=== PATIENT | male | born 1965 | race Caucasian/White ===

== ENCOUNTER → 2017-02-24 | Day surgery (SDC) | payer OTHER ==
[~2017-02-24] VITALS: Ht 190.5 cm; Wt 102.2 kg
[~2017-02-24] MED LIST: AMPICILLIN-SULBACTAM INJ 3 GM VIAL ONE; DEXAMETHASONE SOD PHOS 4 MG/ML VIAL ONE; FAMOTIDINE 20 MG/2 ML VIAL ONE; GLIM2TAB PO; HYDR1ELX PO; LACTATED RINGER'S 1000 ML INJ 1,000 ML ONE; MIDAZOLAM HCL 2 MG/2 ML VIAL ONE; ONDANSETRON HCL 4 MG/2 ML VIAL IV PUSH ONE; ONDANSETRON HCL 4 MG/2 ML VIAL ONE; OXYMETAZOLINE HCL 0.05% 15 ML NASAL SPRAY ONE; PROPOFOL 200 MG/20 ML AMP IV ONE; SODIUM CHLORIDE 0.9% INJ 100 ML ONE; SUGAMMADEX SODIUM 200 MG/2 ML VIAL IV PUSH ONE
[2017-02-24 07:28] VITALS: BP 125/91; PULSE 63; RESP 16; TEMP 97.8; O2SAT 98
[2017-02-24 07:49] LABS: HEMATOCRIT 49.5 % (39.0-51.0); MEAN CELL VOLUME 90.4 FL (80.0-100.0); MEAN CORPUSCULAR HEMOGLOBIN 29.8 PG (27.0-34.0); MEAN CORPUSCULAR HGB CONC 32.9 % (32.0-36.0); PLATELET COUNT 180 TH/MM3 (150-450); RED BLOOD COUNT 5.48 MIL/MM3 (4.50-5.90); RED CELL DISTRIBUTION WIDTH 12.7 % (11.6-17.2); REVIEW FLAG FINAL; WHITE BLOOD COUNT 4.7 TH/MM3 (4.0-11.0)
[2017-02-24 10:50] VITALS: BP 142/81; PULSE 52; RESP 18; TEMP 97.8; O2SAT 96
--- NOTE | 2017-02-25 12:17 | EKG ---
Date Performed: 02/24/2017 Time Performed: 07:48:46 PTAGE: 51 years EKG: Sinus bradycardia. Leftward axis Borderline ECG NO PREVIOUS TRACING DOCTOR: Wayne Velez Interpretating Date/Time 02/25/2017 12:15:39
--- NOTE | 2017-03-02 08:37 | MP ---
cc: SKIP MILES M.D. DATE OF SURGERY: 02/24/[address] Skip Miles. PREOPERATIVE DIAGNOSIS 1. Hoarseness. 2. Bilateral vocal cord benign lesions. POSTOPERATIVE DIAGNOSIS 1. Hoarseness. 2. Bilateral vocal cord benign lesions. OPERATION PERFORMED Microlaryngoscopy with excision of bilateral vocal cord lesions. INDICATIONS Documented in the history and physical. DESCRIPTION OF OPERATION The patient was taken to OR #2 and placed in the supine position. Following induction of general anesthesia and intubation using a 6-0 endotracheal tube a shoulder roll and a Zak head drape were put in place. A dental guard was placed and then using the Jako laryngoscope hypopharynx and larynx were brought into view. The lesions of the cord were identified and the patient was then placed in suspension laryngoscopy. The microscope was then brought into the field and examination of the glottis through the scope revealed the two benign lesions of vocal cord. These appeared to be cystic type lesions at the junction of the middle and anterior one-third of the right side larger than left. The right side was addressed first. Using the Coblator micro laryngeal plasma wand at a setting of 3, the lesion was then reduced until it was flush with the surface of the medial surface of the vocal cord. Cord was inspected superiorly and inferiorly and there was no further evidence of lesions. The left side then was addressed using the same technique. The lesion on this side was not as large. The wand was then removed and the scope was removed. The procedure was terminated. The patient was reversed from anesthesia and taken to recovery in good condition. No complications or blood loss. MD MOISES Patel/BEKA /8:08 AM /8:25 AM
== END | disposition home or self-care (01) ==
LOC: PHSDC 06:48
PROVIDERS: ATTEND Otolaryngology
DX: J38.2 Nodules of vocal cords (principal); R94.31 Abnormal electrocardiogram [ECG] [EKG]; E11.9 Type 2 diabetes mellitus without complications
CPT/HCPCS: 00320; 31541; 85027; 93005; J0295; J1100; J2250; J2405; J3010; J7120; 36415